=== PATIENT | male | born 1945 | race Caucasian/White ===

== ENCOUNTER 2016-07-23 18:42 | Inpatient (IN) | payer MEDICARE ==
[~2016-07-23] VITALS: Ht 182.9 cm; Wt 96.9 kg
[~2016-07-23 18:42] MED LIST: AMIO200T PO; ASPI-496 PO; ATOR20TA PO; CARV12.52 PO; CLOP75TA22 PO; DOCU50LI24 PO; LISI5TAB7 PO; OXYC5TAB3 PO
[2016-07-23] MEDS ORDERED: NIAC500T9 PO (18:57)
[2016-07-23] MEDS ORDERED: MAGN300C PO (18:57)
[2016-07-23] MEDS ORDERED: ACETAMINOPHEN 325 MG TABLET PO PRN (20:30)
[2016-07-23] MEDS ORDERED: DOCUSATE 100 MG CAPSULE PO PRN (20:30)
[2016-07-23] MEDS ORDERED: BISACODYL 10 MG SUPP PR PRN (20:30)
[2016-07-23] MEDS ORDERED: MAGNESIUM SULFATE PMX 2GM/50ML 50 ML IV ONE (20:30)
[2016-07-23] MEDS ORDERED: MORPHINE SULFATE 4 MG/ML, 1ML IVPush PRN (20:30)
[2016-07-23] MEDS ORDERED: POLYETHYLENE GLYCOL 17 GM PACKET PO PRN (20:30)
[2016-07-23 20:49] LABS: IS PT STATUS REG ER OR PRE ER? YES
[2016-07-23] MEDS: ATORVASTATIN 20 MG TABLET PO SCH (22:35)
[2016-07-23] MEDS: ENOXAPARIN 100 MG/ML SQ SCH (22:35)
[2016-07-23 22:48] VITALS: BP 119/60
[2016-07-23] MEDS ORDERED: METO25TA4 PO (23:07)
[2016-07-24 01:18] VITALS: BP 129/77
[2016-07-24 02:37] LABS: IS PT STATUS REG ER OR PRE ER? NO
[2016-07-24 04:17] LABS: ASPARTATE AMINO TRANSFERASE 111 U/L (15-37); BLOOD UREA NITROGEN 27 mg/dL (7-18)
[2016-07-24 06:42] VITALS: BP 97/62
[2016-07-24] MEDS ORDERED: SODIUM CHLORIDE 0.9% 1,000 ML IV SCH (08:30)
[2016-07-24] MEDS: ENOXAPARIN 100 MG/ML SQ SCH (08:42)
[2016-07-24] MEDS: ASPIRIN 81 MG TABLET EC PO SCH (08:43)
[2016-07-24] MEDS: ONDANSETRON 2MG/ML, 2ML IVP PRN ×2 (11:38→21:33)
[2016-07-24 13:05] VITALS: BP 113/67
[2016-07-24] MEDS ORDERED: FENTANYL PF 100 MCG/2ML ONE (13:14)
[2016-07-24] MEDS ORDERED: VERAPAMIL 2.5 MG/ML, 2ML ONE (13:14)
[2016-07-24] MEDS ORDERED: MIDAZOLAM 1 MG/ML, 5ML ONE (13:14)
[2016-07-24] MEDS ORDERED: TICAGRELOR 90 MG TABLET ONE (13:14)
[2016-07-24] MEDS ORDERED: LIDOCAINE 2%, 20ML ONE (13:15)
[2016-07-24] MEDS ORDERED: BIVALIRUDIN 250 MG ONE (13:15)
[2016-07-24] MEDS ORDERED: HEPARIN 1,000 UNITS/ML, 10ML ONE (13:15)
[2016-07-24 16:01] VITALS: BP 95/58
[2016-07-24] MEDS ORDERED: CLOPIDOGREL 300 MG TABLET PO ONE (16:30)
[2016-07-24] MEDS ORDERED: PROMETHAZINE 25 MG/ML, 1ML IM ONE (16:30)
[2016-07-24 20:00] VITALS: BP 146/72
[2016-07-24] MEDS: ATORVASTATIN 20 MG TABLET PO SCH (21:33)
[2016-07-24] MEDS: NITROGLYCERIN OINT 2%, 1GM TP SCH (21:33)
[2016-07-25 02:00] VITALS: BP_SYST 100; BP_SYST 95; BP_DIAS 55; BP_DIAS 59
[2016-07-25 06:50] VITALS: BP 104/63
[2016-07-25 09:00] LABS: BLOOD UREA NITROGEN 27 mg/dL (7-18)
[2016-07-25] MEDS ORDERED: CLOPIDOGREL 75 MG TABLET PO SCH (09:00)
[2016-07-25] MEDS: ASPIRIN 81 MG TABLET EC PO SCH (09:06)
[2016-07-25] MEDS ORDERED: SODIUM CHLORIDE 0.9% 1,000 ML IV SCH (09:30)
[2016-07-25] MEDS: NITROGLYCERIN OINT 2%, 1GM TP SCH (09:52)
[2016-07-25 14:15] VITALS: BP 104/62
[2016-07-25] MEDS ORDERED: OMNIPAQUE 350 MG/ML, 100ML BOTTLE ONE (15:53)
[2016-07-25] MEDS ORDERED: NITR1OIN TP (16:53)
[2016-07-25] MEDS ORDERED: CLOP75TA PO (16:53)
== END 2016-07-25 18:27 | disposition home or self-care (01) | DRG 280 ==
LOC: ED 19:20 → EDIP 19:34 → 5SO 21:36
PROC: 4A023N7 Measurement of Cardiac Sampling and Pressure, Left Heart, Percutaneous Approach (ICD-10-PCS; principal; 2016-07-24)
PROC: B2131ZZ Fluoroscopy of Multiple Coronary Artery Bypass Grafts using Low Osmolar Contrast (ICD-10-PCS; 2016-07-24)
PROC: B2181ZZ Fluoroscopy of Left Internal Mammary Bypass Graft using Low Osmolar Contrast (ICD-10-PCS; 2016-07-24)
PROC: B2111ZZ Fluoroscopy of Multiple Coronary Arteries using Low Osmolar Contrast (ICD-10-PCS; 2016-07-24)
PROC: B2151ZZ Fluoroscopy of Left Heart using Low Osmolar Contrast (ICD-10-PCS; 2016-07-24)
DX: I21.4 Non-ST elevation (NSTEMI) myocardial infarction (principal); N17.0 Acute kidney failure with tubular necrosis; D68.69 Other thrombophilia; I13.0 Hypertensive heart and chronic kidney disease with heart failure and stage 1 through stage 4 chronic kidney disease, or unspecified chronic kidney disease; I25.810 Atherosclerosis of coronary artery bypass graft(s) without angina pectoris; I48.0 Paroxysmal atrial fibrillation; E78.5 Hyperlipidemia, unspecified; E86.0 Dehydration; Y83.2 Surgical operation with anastomosis, bypass or graft as the cause of abnormal reaction of the patient, or of later complication, without mention of misadventure at the time of the procedure; Y92.9 Unspecified place or not applicable; D72.829 Elevated white blood cell count, unspecified; I25.5 Ischemic cardiomyopathy; I50.9 Heart failure, unspecified; I70.0 Atherosclerosis of aorta; N18.3 Chronic kidney disease, stage 3 (moderate); R00.1 Bradycardia, unspecified; I95.9 Hypotension, unspecified; Z79.82 Long term (current) use of aspirin; Z82.49 Family history of ischemic heart disease and other diseases of the circulatory system; Z87.891 Personal history of nicotine dependence; Z90.89 Acquired absence of other organs; Y92.89 Other specified places as the place of occurrence of the external cause
CPT/HCPCS: 36415; 71275; 74175; 76700; 80048; 80053; 80061; 83735; 84100; 84443; 84484; 85025; 93005; 93306; 93459; 93970; 99285; C1760; C1894; J0583; J1644; J1650; J2250; J2405; J3010; J3490; Q9967; J3475; J7030

== ENCOUNTER 2019-10-11 08:06 | Outpatient (CLI) | payer MEDICARE ==
[~2019-10-11 08:06] MED LIST changes: +CLOP75TA PO; -CLOP75TA22 PO; +CLOP75TA52 PO; +MAGN300C PO; +METO25TA4 PO; +NIAC500T9 PO; +NITR1OIN TP; +REGADENOSON 0.4 MG/5 ML SYRINGE ONE
== END 2019-10-11 23:59 | disposition home or self-care (01) ==
LOC: CFH 08:06
PROVIDERS: ATTEND Internal Medicine Cardiovascular Disease
DX: I25.5 Ischemic cardiomyopathy (principal)
CPT/HCPCS: 78452; 93017; A9502; J2785